=== PATIENT | male | born 1970 | race Caucasian/White ===

== ENCOUNTER 2020-11-20 20:55 | Inpatient (IN) | payer OTHER, MEDICARE ==
[~2020-11-20] VITALS: Ht 185.4 cm; Wt 155.3 kg
[2020-11-20 21:01] VITALS: BP 168/94
[2020-11-20 21:46] LABS: BASOPHILS % (AUTO) 0.6 % (0.0-5.0); EOSINOPHILS % (AUTO) 1.3 % (0.0-8.0); HEMATOCRIT 32.4 % (42-54); LYMPHOCYTES % (AUTO) 6.2 % (21.0-51.0); MEAN CORPUSCULAR HEMOGLOBIN 33.1 pg (27.0-33.0); MEAN CORPUSCULAR HGB CONC 34.9 g/dL (32.0-36.0); MONOCYTES % (AUTO) 7.4 % (3.0-13.0); NEUTROPHILS % (AUTO) 82.8 % (40.0-77.0); PLATELET COUNT (AUTO) 201 K/uL (130-400); RED BLOOD CELL COUNT(AUTO) 3.41 MIL/uL (4.50-6.20); RED CELL DISTRIBUTION WIDTH 13.6 % (11.0-15.5); WHITE BLOOD COUNT (AUTO) 14.8 K/uL (4.8-10.8)
[2020-11-20 22:02] LABS: ALBUMIN 3.4 g/dL (3.5-5.0); BILIRUBIN,TOTAL 0.4 mg/dL (0.2-1.0); CRP QUANTITATIVE 44.7 mg/L (0.00-9.0); POTASSIUM 5.7 mmol/L (3.5-5.1); TOTAL PROTEIN, SERUM 8.7 g/dL (6.0-8.3)
[2020-11-20 22:05] LABS: CREATININE 8.3 mg/dL (0.5-1.5)
[2020-11-20 22:11] LABS: B-TYPE NATRIURETIC PEPTIDE 285 pg/mL (0-100)
[2020-11-20] MEDS ORDERED: PIP/TAZ ZOSYN 3.375G 3.375 GM VIAL IVPB ONE (23:30)
[2020-11-20] MEDS ORDERED: INSULIN HUMULIN R 100 UNIT/ML 3ML IV ONE (23:30)
[2020-11-20] MEDS ORDERED: ZOSYN 3.375GM +NS 50ML IV ONE (23:45)
[2020-11-20] MEDS ORDERED: 0.9%NACL 50ML 50 ML IV ONE (23:45)
[2020-11-21] VITALS (24 sets, daily range): BP systolic 107–148; BP diastolic 50–86
[2020-11-21] MEDS: 0.9%NACL 1000ML 1,000 ML IV SCH ×5 (01:09→15:06)
[2020-11-21] MEDS ORDERED: ZOSYN 3.375GM+NS 50ML 50 ML IV ONE ×2 (01:11→04:07)
[2020-11-21] MEDS ORDERED: ACETAMINOPHEN 325 MG TAB ONE (06:07)
[2020-11-21] MEDS ORDERED: ACETAMINOPHEN 325 MG TAB PO ONE ×2 (06:30)
[2020-11-21] MEDS ORDERED: VANCOMYCIN PROTOCOL PER PHARMACY IV SCH (07:30)
[2020-11-21] MEDS ORDERED: MORPHINE 2 MG SYG IVP PRN (07:30)
[2020-11-21] MEDS: INSULIN R PO SS1 SQ SCH ×4 (07:30→21:00)
[2020-11-21] MEDS ORDERED: COMPOUND IV REFRIGERATED 1 EACH IVSOLN MISC PRN (07:30)
[2020-11-21] MEDS ORDERED: FOLI1TAB85 PO (08:52)
[2020-11-21] MEDS ORDERED: CALA177S9 TP (08:52)
[2020-11-21] MEDS ORDERED: LEVO50CA4 PO (08:52)
[2020-11-21] MEDS ORDERED: AMOX1TAB16 PO (08:52)
[2020-11-21] MEDS ORDERED: AMLO-258 PO (08:52)
[2020-11-21] MEDS ORDERED: METO50TA18 PO (08:52)
[2020-11-21] MEDS ORDERED: SUCR500T PO (08:52)
[2020-11-21] MEDS ORDERED: VALS160T29 PO (08:52)
[2020-11-21] MEDS ORDERED: CETI-89 PO (08:52)
[2020-11-21] MEDS ORDERED: VANCOMYCIN 1.75GM/250ML NS IV SCH ×2 (09:00)
[2020-11-21 09:22] LABS: BASOPHILS % (AUTO) 0.6 % (0.0-5.0); EOSINOPHILS % (AUTO) 0.2 % (0.0-8.0); HEMATOCRIT 27.2 % (42-54); LYMPHOCYTES % (AUTO) 6.3 % (21.0-51.0); MEAN CORPUSCULAR HEMOGLOBIN 33.2 pg (27.0-33.0); MEAN CORPUSCULAR HGB CONC 34.6 g/dL (32.0-36.0); MEAN CORPUSCULAR VOLUME 96.1 fL (79-99); MONOCYTES % (AUTO) 7.4 % (3.0-13.0); NEUTROPHILS % (AUTO) 84.4 % (40.0-77.0); PLATELET COUNT (AUTO) 181 K/uL (130-400); RED BLOOD CELL COUNT(AUTO) 2.83 MIL/uL (4.50-6.20); RED CELL DISTRIBUTION WIDTH 13.9 % (11.0-15.5); WHITE BLOOD COUNT (AUTO) 16.3 K/uL (4.8-10.8)
[2020-11-21 09:35] LABS: MAGNESIUM 1.9 mg/dL (1.80-2.40); POTASSIUM 5.8 mmol/L (3.5-5.1)
[2020-11-21 09:36] LABS: CREATININE 9.2 mg/dL (0.5-1.5)
[2020-11-21] MEDS ORDERED: INSLAN SQ (09:45)
[2020-11-21] MEDS: ZOSYN 3.375GM+NS 50ML 50 ML IV SCH ×2 (09:47→19:42)
[2020-11-21] MEDS ORDERED: INSULIN LISPRO 100 UNIT/ML 3ML SQ STA (10:26)
[2020-11-21] MEDS: INSULIN GLARGINE 100 UNITS/ML 10 ML VIAL SQ SCH (12:15)
[2020-11-21] MEDS: SUCROFERRIC OXYHYDROXIDE 500 MG PO SCH ×2 (12:16→17:00)
[2020-11-21] MEDS: INSULIN LISPRO 100 UNIT/ML 3ML SQ SCH (17:50)
[2020-11-21] MEDS: 0.9%NACL 1000ML 1,000 ML IV PRN (19:14)
[2020-11-21] MEDS: ACETAMINOPHEN 325 MG TAB PO PRN (19:18)
[2020-11-21] MEDS: HEPARIN 5,000 UNIT VIAL IJ PRN (19:32)
[2020-11-22] VITALS (10 sets, daily range): BP systolic 111–139; BP diastolic 45–60
[2020-11-22] MEDS ORDERED: LEVOTHYROXINE 50 MCG TABLET ONE (06:12)
[2020-11-22] MEDS: LEVOTHYROXINE 50 MCG TABLET PO SCH (06:23)
[2020-11-22] MEDS: INSULIN R PO SS1 SQ SCH ×4 (06:25→21:15)
[2020-11-22 07:16] LABS: HEPATITIS Bs ANTIGEN SCREEN P Negative (Negative)
[2020-11-22] MEDS: SUCROFERRIC OXYHYDROXIDE 500 MG PO SCH ×3 (08:00→17:00)
[2020-11-22] MEDS: INSULIN LISPRO 100 UNIT/ML 3ML SQ SCH ×3 (08:00→17:15)
[2020-11-22 08:39] LABS: INR 1.1 (0.85-1.15); PROTHROMBIN TIME 11.9 SEC (9.6-11.6)
[2020-11-22 08:40] LABS: PARTIAL THROMBOPLASTIN TIME 26.4 SEC (26.3-35.5)
[2020-11-22] MEDS: METOPROLOL TARTRATE 50 MG TAB PO SCH (09:00)
[2020-11-22] MEDS: Vitamin B Complex/Vit C/Folic Acid PO SCH (09:00)
[2020-11-22] MEDS ORDERED: LOSARTAN 100 MG TABLET PO SCH (09:00)
[2020-11-22] MEDS: AMLODIPINE 5 MG TAB PO SCH (09:00)
[2020-11-22] MEDS: ZOSYN 3.375GM+NS 50ML 50 ML IV SCH ×2 (09:28→20:05)
[2020-11-22] MEDS: INSULIN GLARGINE 100 UNITS/ML 10 ML VIAL SQ SCH (12:00)
[2020-11-22] MEDS ORDERED: LIDOCAINE HCL 1% MDV 50ML VIAL ONE ×2 (13:03→13:53)
[2020-11-22] MEDS ORDERED: IODIXANOL 320 MG/ML 100 ML VIAL ONE (13:53)
[2020-11-22] MEDS ORDERED: FENTANYL CITRATE PF 50 MCG/1 ML 2ML VIAL ONE (14:09)
[2020-11-22] MEDS ORDERED: MIDAZOLAM HCL 1 MG/ML 2ML VIAL ONE (14:09)
[2020-11-22] MEDS ORDERED: OCTYL 2-CYANOACRYLATE 1 EACH TP ONE (14:30)
[2020-11-23] VITALS (7 sets, daily range): BP systolic 96–149; BP diastolic 45–72
[2020-11-23] MEDS: LEVOTHYROXINE 50 MCG TABLET PO SCH (06:19)
[2020-11-23] MEDS: INSULIN R PO SS1 SQ SCH ×4 (06:36→19:58)
[2020-11-23] MEDS: SUCROFERRIC OXYHYDROXIDE 500 MG PO SCH ×3 (08:00→17:00)
[2020-11-23] MEDS: METOPROLOL TARTRATE 50 MG TAB PO SCH (09:00)
[2020-11-23] MEDS: AMLODIPINE 5 MG TAB PO SCH (09:00)
[2020-11-23] MEDS: INSULIN LISPRO 100 UNIT/ML 3ML SQ SCH ×3 (09:06→16:07)
[2020-11-23] MEDS: Vitamin B Complex/Vit C/Folic Acid PO SCH (09:15)
[2020-11-23] MEDS: ZOSYN 3.375GM+NS 50ML 50 ML IV SCH (09:16)
[2020-11-23] MEDS: INSULIN GLARGINE 100 UNITS/ML 10 ML VIAL SQ SCH (12:07)
[2020-11-23] MEDS: CEFTRIAXONE 2GM VIAL IVP SCH (17:06)
[2020-11-23 21:41] LABS: APPEARANCE,URINE Clear (CLEAR); BILIRUBIN,URINE Negative (NEGATIVE); COLOR,URINE Yellow (YELLOW); GLUCOSE, URINE (UA) 250 mg/dL (NEGATIVE); KETONES,URINE Negative (NEGATIVE); LEUKOCYTE ESTERASE ,URINE Negative (NEGATIVE); NITRATE,URINE Negative (NEGATIVE); OCCULT BLOOD,URINE Small (NEGATIVE); PH,URINE 7.5 (5.0-8.0); PROTEIN,URINE 300 mg/dL (NEGATIVE); UROBILINOGEN,URINE 0.2 mg/dL (0.2-1.0)
[2020-11-23 21:52] LABS: BACTERIA,URINE Rare /HPF (None Seen); RBC,URINE 0-1 /HPF (0-1); SQUAMOUS EPITHELIAL CELL,UR Few /HPF (0-2)
[2020-11-24 03:58] VITALS: BP 141/71
[2020-11-24] MEDS: INSULIN R PO SS1 SQ SCH ×4 (05:16→20:09)
[2020-11-24 05:33] LABS: BASOPHILS % (AUTO) 0.7 % (0.0-5.0); EOSINOPHILS % (AUTO) 5.4 % (0.0-8.0); HEMATOCRIT 26.9 % (42-54); LYMPHOCYTES % (AUTO) 23.4 % (21.0-51.0); MEAN CORPUSCULAR HEMOGLOBIN 32.3 pg (27.0-33.0); MEAN CORPUSCULAR HGB CONC 33.8 g/dL (32.0-36.0); MEAN CORPUSCULAR VOLUME 95.4 fL (79-99); MONOCYTES % (AUTO) 9.4 % (3.0-13.0); NEUTROPHILS % (AUTO) 59.6 % (40.0-77.0); PLATELET COUNT (AUTO) 178 K/uL (130-400); RED BLOOD CELL COUNT(AUTO) 2.82 MIL/uL (4.50-6.20); RED CELL DISTRIBUTION WIDTH 13.3 % (11.0-15.5); WHITE BLOOD COUNT (AUTO) 10.1 K/uL (4.8-10.8)
[2020-11-24] MEDS: LEVOTHYROXINE 50 MCG TABLET PO SCH (06:18)
[2020-11-24] MEDS: SUCROFERRIC OXYHYDROXIDE 500 MG PO SCH ×3 (08:00→17:00)
[2020-11-24 08:08] VITALS: BP 144/69
[2020-11-24 08:35] LABS: ALBUMIN 2.8 g/dL (3.5-5.0); BILIRUBIN,TOTAL 0.2 mg/dL (0.2-1.0); POTASSIUM 4.8 mmol/L (3.5-5.1); TOTAL PROTEIN, SERUM 7.6 g/dL (6.0-8.3)
[2020-11-24] MEDS: INSULIN LISPRO 100 UNIT/ML 3ML SQ SCH ×3 (08:53→16:38)
[2020-11-24] MEDS: METOPROLOL TARTRATE 50 MG TAB PO SCH (09:07)
[2020-11-24] MEDS: Vitamin B Complex/Vit C/Folic Acid PO SCH (09:07)
[2020-11-24] MEDS: AMLODIPINE 5 MG TAB PO SCH (09:07)
[2020-11-24 11:54] VITALS: BP 144/68
[2020-11-24] MEDS: INSULIN GLARGINE 100 UNITS/ML 10 ML VIAL SQ SCH (12:44)
[2020-11-24] MEDS: CEFTRIAXONE 2GM VIAL IVP SCH (12:46)
[2020-11-24 15:51] VITALS: BP 161/65
[2020-11-24 20:00] VITALS: BP 145/72
[2020-11-24 23:59] VITALS: BP 170/80
[2020-11-25] VITALS (7 sets, daily range): BP systolic 119–175; BP diastolic 59–82
[2020-11-25] MEDS: ACETAMINOPHEN 325 MG TAB PO PRN (02:52)
[2020-11-25] MEDS ORDERED: CLONIDINE HCL 0.1 MG TABLET ONE (04:24)
[2020-11-25] MEDS ORDERED: CLONIDINE HCL 0.1 MG TABLET PO ONE (04:30)
[2020-11-25] MEDS: LEVOTHYROXINE 50 MCG TABLET PO SCH (06:11)
[2020-11-25] MEDS: INSULIN R PO SS1 SQ SCH ×4 (06:12→21:01)
[2020-11-25] MEDS: Vitamin B Complex/Vit C/Folic Acid PO SCH (08:59)
[2020-11-25] MEDS: AMLODIPINE 5 MG TAB PO SCH (08:59)
[2020-11-25] MEDS: METOPROLOL TARTRATE 50 MG TAB PO SCH (08:59)
[2020-11-25] MEDS: INSULIN LISPRO 100 UNIT/ML 3ML SQ SCH ×3 (09:00→16:45)
[2020-11-25] MEDS: SUCROFERRIC OXYHYDROXIDE 500 MG PO SCH ×3 (09:10→17:53)
[2020-11-25] MEDS: CEFTRIAXONE 2GM VIAL IVP SCH (11:54)
[2020-11-25] MEDS: INSULIN GLARGINE 100 UNITS/ML 10 ML VIAL SQ SCH (12:03)
[2020-11-26] VITALS (16 sets, daily range): BP systolic 140–198; BP diastolic 67–87
[2020-11-26] MEDS: ACETAMINOPHEN 325 MG TAB PO PRN (01:43)
[2020-11-26] MEDS: INSULIN R PO SS1 SQ SCH ×4 (06:24→20:15)
[2020-11-26 06:30] LABS: INR 1.02 (0.85-1.15); PROTHROMBIN TIME 11.1 SEC (9.6-11.6)
[2020-11-26] MEDS: LEVOTHYROXINE 50 MCG TABLET PO SCH (06:30)
[2020-11-26 06:31] LABS: PARTIAL THROMBOPLASTIN TIME 25.9 SEC (26.3-35.5)
[2020-11-26] MEDS: INSULIN LISPRO 100 UNIT/ML 3ML SQ SCH ×3 (08:00→16:38)
[2020-11-26] MEDS: SUCROFERRIC OXYHYDROXIDE 500 MG PO SCH ×3 (08:00→16:39)
[2020-11-26] MEDS: AMLODIPINE 5 MG TAB PO SCH ×2 (09:00→11:47)
[2020-11-26] MEDS: METOPROLOL TARTRATE 50 MG TAB PO SCH ×2 (09:00→11:47)
[2020-11-26] MEDS: Vitamin B Complex/Vit C/Folic Acid PO SCH (09:00)
[2020-11-26] MEDS ORDERED: LIDOCAINE HCL 1% MDV 50ML VIAL ONE (10:33)
[2020-11-26] MEDS ORDERED: HEPARIN 1,000 UNIT VIAL ONE (10:33)
[2020-11-26] MEDS ORDERED: FENTANYL CITRATE PF 50 MCG/1 ML 2ML VIAL ONE (10:42)
[2020-11-26] MEDS: INSULIN GLARGINE 100 UNITS/ML 10 ML VIAL SQ SCH (11:53)
[2020-11-26] MEDS: CEFTRIAXONE 2GM VIAL IVP SCH (11:59)
[2020-11-26] MEDS: 0.9%NACL 1000ML 1,000 ML IV PRN (23:25)
[2020-11-27] VITALS (31 sets, daily range): BP systolic 118–192; BP diastolic 58–85
[2020-11-27] MEDS: HEPARIN 5,000 UNIT VIAL IJ PRN (00:50)
[2020-11-27] MEDS: ACETAMINOPHEN 325 MG TAB PO PRN ×2 (02:26→09:13)
[2020-11-27 05:28] LABS: HEMATOCRIT 29.5 % (42-54); MEAN CORPUSCULAR HEMOGLOBIN 32.4 pg (27.0-33.0); MEAN CORPUSCULAR HGB CONC 33.6 g/dL (32.0-36.0); MEAN CORPUSCULAR VOLUME 96.4 fL (79-99); RED BLOOD CELL COUNT(AUTO) 3.06 MIL/uL (4.50-6.20); RED CELL DISTRIBUTION WIDTH 13.2 % (11.0-15.5); WHITE BLOOD COUNT (AUTO) 10.5 K/uL (4.8-10.8)
[2020-11-27 05:46] LABS: MAGNESIUM 2.2 mg/dL (1.80-2.40); POTASSIUM 4.6 mmol/L (3.5-5.1)
[2020-11-27 05:55] LABS: CREATININE 8.7 mg/dL (0.5-1.5)
[2020-11-27] MEDS: INSULIN R PO SS1 SQ SCH ×4 (06:12→20:38)
[2020-11-27] MEDS: LEVOTHYROXINE 50 MCG TABLET PO SCH (06:34)
[2020-11-27] MEDS: SUCROFERRIC OXYHYDROXIDE 500 MG PO SCH ×3 (08:00→16:57)
[2020-11-27] MEDS: INSULIN LISPRO 100 UNIT/ML 3ML SQ SCH ×3 (08:00→16:56)
[2020-11-27] MEDS: Vitamin B Complex/Vit C/Folic Acid PO SCH (09:13)
[2020-11-27] MEDS: METOPROLOL TARTRATE 50 MG TAB PO SCH (09:13)
[2020-11-27] MEDS: LOSARTAN 100 MG TABLET PO SCH (09:13)
[2020-11-27] MEDS: AMLODIPINE 5 MG TAB PO SCH (09:13)
[2020-11-27] MEDS: CEFTRIAXONE 2GM VIAL IVP SCH ×2 (11:57→12:30)
[2020-11-27] MEDS: INSULIN GLARGINE 100 UNITS/ML 10 ML VIAL SQ SCH (12:00)
[2020-11-27] MEDS ORDERED: ROPIVACAINE 0.5% 5MG/ML 30ML IJ ONE (12:43)
[2020-11-27] MEDS ORDERED: SUCCINYLCHOLINE 200MG/10ML SYR ONE (12:44)
[2020-11-27] MEDS ORDERED: PROPOFOL 10 MG/ML 20ML VIAL IV ONE (12:44)
[2020-11-27] MEDS ORDERED: MIDAZOLAM HCL 1 MG/ML 2ML VIAL ONE (12:44)
[2020-11-27] MEDS ORDERED: LIDOCAINE PF 100MG/5ML (2%) SYRINGE 5ML ONE (12:44)
[2020-11-27] MEDS ORDERED: VANCOMYCIN 1G VIAL ONE (13:43)
[2020-11-27] MEDS ORDERED: OXYCODONE/ACETAMIN 5/325MG TAB PO PRN (14:30)
[2020-11-27] MEDS ORDERED: MORPHINE 2 MG SYG IVP PRN (14:30)
[2020-11-28] VITALS (21 sets, daily range): BP systolic 105–163; BP diastolic 52–74
[2020-11-28] MEDS ORDERED: CLONIDINE HCL 0.2 MG TABLET PO ONE (05:17)
[2020-11-28] MEDS ORDERED: CLONIDINE HCL 0.2 MG TABLET PO PRN (05:30)
[2020-11-28] MEDS: LEVOTHYROXINE 50 MCG TABLET PO SCH (06:23)
[2020-11-28] MEDS: INSULIN R PO SS1 SQ SCH ×4 (06:26→22:05)
[2020-11-28] MEDS: SUCROFERRIC OXYHYDROXIDE 500 MG PO SCH ×3 (08:00→17:00)
[2020-11-28] MEDS: METOPROLOL TARTRATE 50 MG TAB PO SCH (09:24)
[2020-11-28] MEDS: LOSARTAN 100 MG TABLET PO SCH (09:24)
[2020-11-28] MEDS: Vitamin B Complex/Vit C/Folic Acid PO SCH (09:24)
[2020-11-28] MEDS: AMLODIPINE 5 MG TAB PO SCH (09:24)
[2020-11-28] MEDS: INSULIN LISPRO 100 UNIT/ML 3ML SQ SCH ×3 (09:35→20:12)
[2020-11-28] MEDS: INSULIN GLARGINE 100 UNITS/ML 10 ML VIAL SQ SCH (12:10)
[2020-11-28] MEDS: CEFTRIAXONE 2GM VIAL IVP SCH (12:18)
[2020-11-28] MEDS: 0.9%NACL 1000ML 1,000 ML IV PRN (16:40)
[2020-11-29] VITALS (18 sets, daily range): BP systolic 110–159; BP diastolic 45–75
[2020-11-29] MEDS: LEVOTHYROXINE 50 MCG TABLET PO SCH (06:55)
[2020-11-29] MEDS: INSULIN R PO SS1 SQ SCH ×4 (07:00→21:00)
[2020-11-29] MEDS: SUCROFERRIC OXYHYDROXIDE 500 MG PO SCH ×3 (08:00→17:00)
[2020-11-29] MEDS: Vitamin B Complex/Vit C/Folic Acid PO SCH (09:00)
[2020-11-29] MEDS: AMLODIPINE 5 MG TAB PO SCH (09:00)
[2020-11-29] MEDS: LOSARTAN 100 MG TABLET PO SCH (09:00)
[2020-11-29] MEDS: METOPROLOL TARTRATE 50 MG TAB PO SCH (09:00)
[2020-11-29] MEDS: INSULIN LISPRO 100 UNIT/ML 3ML SQ SCH ×3 (09:09→17:00)
[2020-11-29] MEDS: INSULIN GLARGINE 100 UNITS/ML 10 ML VIAL SQ SCH (12:52)
[2020-11-29] MEDS: CEFTRIAXONE 2GM VIAL IVP SCH (12:58)
[2020-11-29 16:18] LABS: BASOPHILS % (AUTO) 0.9 % (0.0-5.0); EOSINOPHILS % (AUTO) 3.6 % (0.0-8.0); HEMATOCRIT 30.5 % (42-54); LYMPHOCYTES % (AUTO) 24.5 % (21.0-51.0); MEAN CORPUSCULAR HEMOGLOBIN 33.2 pg (27.0-33.0); MEAN CORPUSCULAR HGB CONC 34.1 g/dL (32.0-36.0); MEAN CORPUSCULAR VOLUME 97.4 fL (79-99); MONOCYTES % (AUTO) 6.9 % (3.0-13.0); NEUTROPHILS % (AUTO) 60.4 % (40.0-77.0); PLATELET COUNT (AUTO) 253 K/uL (130-400); RED BLOOD CELL COUNT(AUTO) 3.13 MIL/uL (4.50-6.20); RED CELL DISTRIBUTION WIDTH 13.6 % (11.0-15.5); WHITE BLOOD COUNT (AUTO) 14.9 K/uL (4.8-10.8)
[2020-11-29 16:30] LABS: INR 1.02 (0.85-1.15); PROTHROMBIN TIME 11.1 SEC (9.6-11.6)
[2020-11-29 16:32] LABS: POTASSIUM 4.7 mmol/L (3.5-5.1)
[2020-11-29 16:36] LABS: CREATININE 9.4 mg/dL (0.5-1.5)
[2020-11-29] MEDS ORDERED: PROPOFOL 10 MG/ML 20ML VIAL IV ONE (16:47)
[2020-11-29] MEDS ORDERED: MIDAZOLAM HCL 1 MG/ML 2ML VIAL ONE (16:48)
[2020-11-29] MEDS ORDERED: FENTANYL CITRATE PF 50 MCG/1 ML 2ML VIAL ONE ×2 (16:48→18:37)
[2020-11-29] MEDS ORDERED: LIDOCAINE HCL 1% 20 ML VIAL ONE (18:13)
[2020-11-29] MEDS ORDERED: BUPIVACAINE/PF 0.5% 30ML VIAL ONE (18:13)
[2020-11-29] MEDS: 0.9%NACL 1000ML 1,000 ML IV PRN (19:00)
[2020-11-29] MEDS ORDERED: HYDROMORPHONE 0.5 MG SYG (0.5MG/0.5ML) IVP PRN (20:30)
[2020-11-29] MEDS ORDERED: MORPHINE 2 MG SYG IVP PRN (20:30)
[2020-11-30] VITALS (21 sets, daily range): BP systolic 101–167; BP diastolic 56–79
[2020-11-30] MEDS: INSULIN R PO SS1 SQ SCH ×4 (06:46→20:16)
[2020-11-30] MEDS: LEVOTHYROXINE 50 MCG TABLET PO SCH (06:53)
[2020-11-30] MEDS: SUCROFERRIC OXYHYDROXIDE 500 MG PO SCH ×3 (08:00→17:00)
[2020-11-30] MEDS: INSULIN LISPRO 100 UNIT/ML 3ML SQ SCH ×3 (08:44→17:22)
[2020-11-30] MEDS: Vitamin B Complex/Vit C/Folic Acid PO SCH (08:44)
[2020-11-30] MEDS: METOPROLOL TARTRATE 50 MG TAB PO SCH (08:45)
[2020-11-30] MEDS: LOSARTAN 100 MG TABLET PO SCH (08:45)
[2020-11-30] MEDS: AMLODIPINE 5 MG TAB PO SCH (08:45)
[2020-11-30 09:10] LABS: HEMATOCRIT 29.8 % (42-54); MEAN CORPUSCULAR HGB CONC 33.2 g/dL (32.0-36.0); MEAN CORPUSCULAR VOLUME 96.4 fL (79-99); PLATELET COUNT (AUTO) 253 K/uL (130-400); RED BLOOD CELL COUNT(AUTO) 3.09 MIL/uL (4.50-6.20); RED CELL DISTRIBUTION WIDTH 13.5 % (11.0-15.5); WHITE BLOOD COUNT (AUTO) 12.9 K/uL (4.8-10.8)
[2020-11-30 09:22] LABS: POTASSIUM 5.3 mmol/L (3.5-5.1)
[2020-11-30 09:55] LABS: BASOPHILS % (MANUAL) 1 % (0-2); EOSINOPHILS % (MANUAL) 3 % (1-6); LYMPHOCYTES % (MANUAL) 16 % (22-44); MONOCYTES % (MANUAL) 11 % (2-9); PLATELET MORPHOLOGY COMMENT ADEQUATE; REACTIVE LYMPHOCYTES 1 % (0-0); SEGMENTED NEUTROPHILS % 68 % (40-70)
[2020-11-30] MEDS: CEFTRIAXONE 2GM VIAL IVP SCH (11:59)
[2020-11-30] MEDS: INSULIN GLARGINE 100 UNITS/ML 10 ML VIAL SQ SCH (12:49)
[2020-11-30] MEDS: 0.9%NACL 1000ML 1,000 ML IV PRN (17:36)
[2020-11-30] MEDS: HEPARIN 5,000 UNIT VIAL IJ PRN (18:35)
[2020-12-01] VITALS (8 sets, daily range): BP systolic 80–151; BP diastolic 44–79
[2020-12-01] MEDS: INSULIN R PO SS1 SQ SCH ×4 (06:03→21:00)
[2020-12-01 06:23] LABS: HEMATOCRIT 29.6 % (42-54); MEAN CORPUSCULAR HEMOGLOBIN 32.3 pg (27.0-33.0); MEAN CORPUSCULAR HGB CONC 33.8 g/dL (32.0-36.0); MEAN CORPUSCULAR VOLUME 95.5 fL (79-99); RED BLOOD CELL COUNT(AUTO) 3.1 MIL/uL (4.50-6.20); RED CELL DISTRIBUTION WIDTH 13.3 % (11.0-15.5); WHITE BLOOD COUNT (AUTO) 11.5 K/uL (4.8-10.8)
[2020-12-01 06:49] LABS: ALBUMIN 3.1 g/dL (3.5-5.0); BILIRUBIN,TOTAL 0.2 mg/dL (0.2-1.0); MAGNESIUM 2.1 mg/dL (1.80-2.40); POTASSIUM 4.8 mmol/L (3.5-5.1); TOTAL PROTEIN, SERUM 7.9 g/dL (6.0-8.3)
[2020-12-01 06:51] LABS: CREATININE 8.4 mg/dL (0.5-1.5)
[2020-12-01] MEDS: LEVOTHYROXINE 50 MCG TABLET PO SCH (06:54)
[2020-12-01] MEDS: SUCROFERRIC OXYHYDROXIDE 500 MG PO SCH ×3 (08:00→17:00)
[2020-12-01] MEDS: INSULIN LISPRO 100 UNIT/ML 3ML SQ SCH ×3 (08:00→17:08)
[2020-12-01] MEDS: Vitamin B Complex/Vit C/Folic Acid PO SCH (09:27)
[2020-12-01] MEDS: LOSARTAN 100 MG TABLET PO SCH (09:27)
[2020-12-01] MEDS: METOPROLOL TARTRATE 50 MG TAB PO SCH (09:27)
[2020-12-01] MEDS: AMLODIPINE 5 MG TAB PO SCH (09:27)
[2020-12-01] MEDS: INSULIN GLARGINE 100 UNITS/ML 10 ML VIAL SQ SCH (12:11)
[2020-12-01] MEDS: CEFTRIAXONE 2GM VIAL IVP SCH (12:35)
[2020-12-02 04:02] VITALS: BP 122/73
[2020-12-02] MEDS: LEVOTHYROXINE 50 MCG TABLET PO SCH (06:19)
[2020-12-02] MEDS: INSULIN R PO SS1 SQ SCH ×4 (06:54→21:00)
[2020-12-02 08:00] VITALS: BP 159/69
[2020-12-02] MEDS: SUCROFERRIC OXYHYDROXIDE 500 MG PO SCH ×3 (08:00→16:44)
[2020-12-02] MEDS: INSULIN LISPRO 100 UNIT/ML 3ML SQ SCH ×3 (08:00→18:45)
[2020-12-02] MEDS: AMLODIPINE 5 MG TAB PO SCH (10:35)
[2020-12-02] MEDS: LOSARTAN 100 MG TABLET PO SCH (10:36)
[2020-12-02] MEDS: METOPROLOL TARTRATE 50 MG TAB PO SCH (10:36)
[2020-12-02] MEDS: Vitamin B Complex/Vit C/Folic Acid PO SCH (10:37)
[2020-12-02 11:31] VITALS: BP 146/70
[2020-12-02] MEDS: CEFTRIAXONE 2GM VIAL IVP SCH (14:21)
[2020-12-02] MEDS: INSULIN GLARGINE 100 UNITS/ML 10 ML VIAL SQ SCH (14:24)
[2020-12-02 16:00] VITALS: BP 138/51
[2020-12-02 20:08] VITALS: BP 97/48
[2020-12-03] VITALS (20 sets, daily range): BP systolic 101–157; BP diastolic 56–74
[2020-12-03] MEDS: LEVOTHYROXINE 50 MCG TABLET PO SCH (05:46)
[2020-12-03] MEDS: INSULIN R PO SS1 SQ SCH ×4 (05:46→21:00)
[2020-12-03 07:02] LABS: HEMATOCRIT 28.7 % (42-54); MEAN CORPUSCULAR HEMOGLOBIN 32.6 pg (27.0-33.0); MEAN CORPUSCULAR HGB CONC 34.5 g/dL (32.0-36.0); MEAN CORPUSCULAR VOLUME 94.4 fL (79-99); RED BLOOD CELL COUNT(AUTO) 3.04 MIL/uL (4.50-6.20); RED CELL DISTRIBUTION WIDTH 13.5 % (11.0-15.5); WHITE BLOOD COUNT (AUTO) 13.1 K/uL (4.8-10.8)
[2020-12-03 07:19] LABS: POTASSIUM 4.3 mmol/L (3.5-5.1)
[2020-12-03 07:51] LABS: CREATININE 9.2 mg/dL (0.5-1.5)
[2020-12-03] MEDS: SUCROFERRIC OXYHYDROXIDE 500 MG PO SCH ×3 (08:00→17:00)
[2020-12-03] MEDS: LOSARTAN 100 MG TABLET PO SCH (10:11)
[2020-12-03] MEDS: AMLODIPINE 5 MG TAB PO SCH (10:11)
[2020-12-03] MEDS: Vitamin B Complex/Vit C/Folic Acid PO SCH (10:11)
[2020-12-03] MEDS: METOPROLOL TARTRATE 50 MG TAB PO SCH (10:11)
[2020-12-03] MEDS: INSULIN LISPRO 100 UNIT/ML 3ML SQ SCH ×3 (10:12→17:29)
[2020-12-03] MEDS: CEFTRIAXONE 2GM VIAL IVP SCH (14:40)
[2020-12-03] MEDS: INSULIN GLARGINE 100 UNITS/ML 10 ML VIAL SQ SCH (14:46)
[2020-12-04 00:12] VITALS: BP 106/54
[2020-12-04 04:12] VITALS: BP 118/65
[2020-12-04] MEDS: LEVOTHYROXINE 50 MCG TABLET PO SCH (05:16)
[2020-12-04] MEDS: INSULIN R PO SS1 SQ SCH ×4 (07:30→21:00)
[2020-12-04 08:00] VITALS: BP 94/42
[2020-12-04] MEDS: SUCROFERRIC OXYHYDROXIDE 500 MG PO SCH ×3 (08:00→15:39)
[2020-12-04] MEDS: INSULIN LISPRO 100 UNIT/ML 3ML SQ SCH ×3 (08:00→15:40)
[2020-12-04] MEDS: LOSARTAN 100 MG TABLET PO SCH (09:00)
[2020-12-04] MEDS: AMLODIPINE 5 MG TAB PO SCH (09:00)
[2020-12-04] MEDS: METOPROLOL TARTRATE 50 MG TAB PO SCH (09:15)
[2020-12-04] MEDS: Vitamin B Complex/Vit C/Folic Acid PO SCH (09:15)
[2020-12-04] MEDS: ACETAMINOPHEN 325 MG TAB PO PRN (09:20)
[2020-12-04 11:33] VITALS: BP 94/58
[2020-12-04] MEDS: CEFTRIAXONE 2GM VIAL IVP SCH (12:21)
[2020-12-04] MEDS: INSULIN GLARGINE 100 UNITS/ML 10 ML VIAL SQ SCH (12:21)
[2020-12-04 20:49] VITALS: BP 135/65
[2020-12-04] MEDS: METRONIDAZOLE 500MG/100ML BAG 100 ML IVPB SCH (22:32)
[2020-12-04 23:31] VITALS: BP 151/68
[2020-12-05] VITALS (19 sets, daily range): BP systolic 100–138; BP diastolic 50–71
[2020-12-05] MEDS: INSULIN R PO SS1 SQ SCH ×4 (05:59→21:00)
[2020-12-05] MEDS: METRONIDAZOLE 500MG/100ML BAG 100 ML IVPB SCH ×3 (06:12→21:34)
[2020-12-05] MEDS: LEVOTHYROXINE 50 MCG TABLET PO SCH (06:12)
[2020-12-05] MEDS: SUCROFERRIC OXYHYDROXIDE 500 MG PO SCH ×3 (07:50→16:01)
[2020-12-05] MEDS: INSULIN LISPRO 100 UNIT/ML 3ML SQ SCH ×3 (08:00→16:01)
[2020-12-05] MEDS: METOPROLOL TARTRATE 50 MG TAB PO SCH (08:17)
[2020-12-05] MEDS: Vitamin B Complex/Vit C/Folic Acid PO SCH (08:17)
[2020-12-05] MEDS: AMLODIPINE 5 MG TAB PO SCH (08:17)
[2020-12-05] MEDS: LOSARTAN 100 MG TABLET PO SCH (08:17)
[2020-12-05] MEDS: CEFTRIAXONE 2GM VIAL IVP SCH (12:30)
[2020-12-05] MEDS: INSULIN GLARGINE 100 UNITS/ML 10 ML VIAL SQ SCH (12:39)
[2020-12-05] MEDS: ACETAMINOPHEN 325 MG TAB PO PRN (15:10)
[2020-12-06 03:37] VITALS: BP 114/64
[2020-12-06] MEDS: METRONIDAZOLE 500MG/100ML BAG 100 ML IVPB SCH ×3 (05:28→21:45)
[2020-12-06] MEDS: INSULIN R PO SS1 SQ SCH ×4 (06:26→21:00)
[2020-12-06] MEDS: LEVOTHYROXINE 50 MCG TABLET PO SCH (06:35)
[2020-12-06 08:00] VITALS: BP 123/56
[2020-12-06] MEDS: SUCROFERRIC OXYHYDROXIDE 500 MG PO SCH ×3 (08:00→17:00)
[2020-12-06] MEDS: Vitamin B Complex/Vit C/Folic Acid PO SCH (10:57)
[2020-12-06] MEDS: AMLODIPINE 5 MG TAB PO SCH (10:57)
[2020-12-06] MEDS: LOSARTAN 100 MG TABLET PO SCH (10:57)
[2020-12-06] MEDS: METOPROLOL TARTRATE 50 MG TAB PO SCH (10:57)
[2020-12-06 12:00] VITALS: BP 120/72
[2020-12-06] MEDS: CEFTRIAXONE 2GM VIAL IVP SCH (12:14)
[2020-12-06] MEDS: INSULIN LISPRO 100 UNIT/ML 3ML SQ SCH ×2 (12:19→17:12)
[2020-12-06] MEDS: INSULIN GLARGINE 100 UNITS/ML 10 ML VIAL SQ SCH (12:19)
[2020-12-06] MEDS: ACETAMINOPHEN 325 MG TAB PO PRN (15:36)
[2020-12-06 16:38] VITALS: BP 99/53
[2020-12-06 19:38] VITALS: BP 128/62
[2020-12-06 23:54] VITALS: BP 143/68
[2020-12-07] VITALS (18 sets, daily range): BP systolic 96–134; BP diastolic 51–74
[2020-12-07] MEDS: METRONIDAZOLE 500MG/100ML BAG 100 ML IVPB SCH ×3 (05:34→21:32)
[2020-12-07] MEDS: ACETAMINOPHEN 325 MG TAB PO PRN (05:44)
[2020-12-07 05:46] LABS: HEMATOCRIT 31.5 % (42-54); MEAN CORPUSCULAR HEMOGLOBIN 32.2 pg (27.0-33.0); MEAN CORPUSCULAR HGB CONC 33.7 g/dL (32.0-36.0); MEAN CORPUSCULAR VOLUME 95.7 fL (79-99); RED BLOOD CELL COUNT(AUTO) 3.29 MIL/uL (4.50-6.20); RED CELL DISTRIBUTION WIDTH 13.3 % (11.0-15.5); WHITE BLOOD COUNT (AUTO) 13.1 K/uL (4.8-10.8)
[2020-12-07 06:07] LABS: MAGNESIUM 2.4 mg/dL (1.80-2.40)
[2020-12-07 06:11] LABS: CREATININE 10.7 mg/dL (0.5-1.5)
[2020-12-07] MEDS: INSULIN R PO SS1 SQ SCH ×4 (06:18→20:32)
[2020-12-07] MEDS: LEVOTHYROXINE 50 MCG TABLET PO SCH (06:50)
[2020-12-07] MEDS: SUCROFERRIC OXYHYDROXIDE 500 MG PO SCH ×3 (08:00→12:51)
[2020-12-07] MEDS: Vitamin B Complex/Vit C/Folic Acid PO SCH (08:53)
[2020-12-07] MEDS: LOSARTAN 100 MG TABLET PO SCH (09:00)
[2020-12-07] MEDS: AMLODIPINE 5 MG TAB PO SCH (09:00)
[2020-12-07] MEDS: METOPROLOL TARTRATE 50 MG TAB PO SCH (09:00)
[2020-12-07] MEDS: INSULIN LISPRO 100 UNIT/ML 3ML SQ SCH ×3 (09:05→17:34)
[2020-12-07] MEDS: 0.9%NACL 1000ML 1,000 ML IV PRN (12:15)
[2020-12-07] MEDS: INSULIN GLARGINE 100 UNITS/ML 10 ML VIAL SQ SCH (12:47)
[2020-12-08] VITALS (7 sets, daily range): BP systolic 101–119; BP diastolic 54–65
[2020-12-08] MEDS: LEVOTHYROXINE 50 MCG TABLET PO SCH (05:39)
[2020-12-08] MEDS: METRONIDAZOLE 500MG/100ML BAG 100 ML IVPB SCH ×3 (05:39→21:31)
[2020-12-08] MEDS: INSULIN R PO SS1 SQ SCH ×4 (05:54→21:37)
[2020-12-08] MEDS: SUCROFERRIC OXYHYDROXIDE 500 MG PO SCH ×3 (08:00→17:00)
[2020-12-08] MEDS: Vitamin B Complex/Vit C/Folic Acid PO SCH (08:26)
[2020-12-08] MEDS: METOPROLOL TARTRATE 50 MG TAB PO SCH (08:26)
[2020-12-08] MEDS: AMLODIPINE 5 MG TAB PO SCH (08:26)
[2020-12-08] MEDS: LOSARTAN 100 MG TABLET PO SCH (08:26)
[2020-12-08] MEDS: INSULIN LISPRO 100 UNIT/ML 3ML SQ SCH ×3 (08:32→17:17)
[2020-12-08] MEDS: INSULIN GLARGINE 100 UNITS/ML 10 ML VIAL SQ SCH (12:00)
[2020-12-09 03:49] VITALS: BP 128/68
[2020-12-09] MEDS: METRONIDAZOLE 500MG/100ML BAG 100 ML IVPB SCH ×3 (05:21→21:32)
[2020-12-09] MEDS: LEVOTHYROXINE 50 MCG TABLET PO SCH (05:22)
[2020-12-09] MEDS: INSULIN R PO SS1 SQ SCH ×4 (06:07→21:00)
[2020-12-09 07:42] VITALS: BP 126/81
[2020-12-09] MEDS: SUCROFERRIC OXYHYDROXIDE 500 MG PO SCH ×3 (08:00→17:00)
[2020-12-09] MEDS: LOSARTAN 100 MG TABLET PO SCH (08:30)
[2020-12-09] MEDS: Vitamin B Complex/Vit C/Folic Acid PO SCH (08:30)
[2020-12-09] MEDS: AMLODIPINE 5 MG TAB PO SCH (08:30)
[2020-12-09] MEDS: METOPROLOL TARTRATE 50 MG TAB PO SCH (08:30)
[2020-12-09] MEDS: INSULIN LISPRO 100 UNIT/ML 3ML SQ SCH ×3 (08:32→18:10)
[2020-12-09 11:14] VITALS: BP 125/52
[2020-12-09] MEDS: INSULIN GLARGINE 100 UNITS/ML 10 ML VIAL SQ SCH (13:03)
[2020-12-09 17:16] VITALS: BP 114/90
[2020-12-09 20:20] VITALS: BP 104/58
[2020-12-09 23:34] VITALS: BP 142/61
[2020-12-10] VITALS (19 sets, daily range): BP systolic 92–150; BP diastolic 54–75
[2020-12-10 05:08] LABS: HEMATOCRIT 28.9 % (42-54); MEAN CORPUSCULAR HEMOGLOBIN 32.7 pg (27.0-33.0); MEAN CORPUSCULAR HGB CONC 34.6 g/dL (32.0-36.0); MEAN CORPUSCULAR VOLUME 94.4 fL (79-99); RED BLOOD CELL COUNT(AUTO) 3.06 MIL/uL (4.50-6.20); RED CELL DISTRIBUTION WIDTH 13.2 % (11.0-15.5); WHITE BLOOD COUNT (AUTO) 13.2 K/uL (4.8-10.8)
[2020-12-10 05:37] LABS: MAGNESIUM 2.4 mg/dL (1.80-2.40); POTASSIUM 5.2 mmol/L (3.5-5.1)
[2020-12-10] MEDS: LEVOTHYROXINE 50 MCG TABLET PO SCH (05:37)
[2020-12-10] MEDS: METRONIDAZOLE 500MG/100ML BAG 100 ML IVPB SCH ×3 (05:37→20:44)
[2020-12-10 05:46] LABS: CREATININE 11.2 mg/dL (0.5-1.5)
[2020-12-10] MEDS: INSULIN R PO SS1 SQ SCH ×4 (05:52→21:21)
[2020-12-10] MEDS: SUCROFERRIC OXYHYDROXIDE 500 MG PO SCH ×3 (08:00→17:00)
[2020-12-10] MEDS: Vitamin B Complex/Vit C/Folic Acid PO SCH (08:55)
[2020-12-10] MEDS: AMLODIPINE 5 MG TAB PO SCH (08:55)
[2020-12-10] MEDS: METOPROLOL TARTRATE 50 MG TAB PO SCH (08:56)
[2020-12-10] MEDS: LOSARTAN 100 MG TABLET PO SCH (08:56)
[2020-12-10] MEDS: INSULIN LISPRO 100 UNIT/ML 3ML SQ SCH ×3 (09:03→18:24)
[2020-12-10] MEDS: 0.9%NACL 1000ML 1,000 ML IV PRN (11:44)
[2020-12-10] MEDS: HEPARIN 5,000 UNIT VIAL IJ PRN (11:50)
[2020-12-10] MEDS: INSULIN GLARGINE 100 UNITS/ML 10 ML VIAL SQ SCH (12:48)
[2020-12-11 04:40] VITALS: BP 127/68
[2020-12-11] MEDS: METRONIDAZOLE 500MG/100ML BAG 100 ML IVPB SCH ×3 (05:06→23:06)
[2020-12-11] MEDS: INSULIN R PO SS1 SQ SCH ×4 (05:07→21:00)
[2020-12-11] MEDS: LEVOTHYROXINE 50 MCG TABLET PO SCH (07:30)
[2020-12-11 08:00] VITALS: BP 136/68
[2020-12-11] MEDS: SUCROFERRIC OXYHYDROXIDE 500 MG PO SCH ×3 (08:00→17:00)
[2020-12-11] MEDS: AMLODIPINE 5 MG TAB PO SCH (09:43)
[2020-12-11] MEDS: LOSARTAN 100 MG TABLET PO SCH (09:43)
[2020-12-11] MEDS: Vitamin B Complex/Vit C/Folic Acid PO SCH (09:43)
[2020-12-11] MEDS: METOPROLOL TARTRATE 50 MG TAB PO SCH (09:43)
[2020-12-11] MEDS: INSULIN LISPRO 100 UNIT/ML 3ML SQ SCH ×3 (09:52→17:56)
[2020-12-11 11:39] VITALS: BP 129/70
[2020-12-11] MEDS: INSULIN GLARGINE 100 UNITS/ML 10 ML VIAL SQ SCH (12:15)
[2020-12-11 16:34] VITALS: BP 117/56
[2020-12-11 20:00] VITALS: BP 112/62
[2020-12-12] VITALS (20 sets, daily range): BP systolic 101–149; BP diastolic 58–78
[2020-12-12] MEDS: LEVOTHYROXINE 50 MCG TABLET PO SCH (05:58)
[2020-12-12] MEDS: METRONIDAZOLE 500MG/100ML BAG 100 ML IVPB SCH ×3 (05:58→21:00)
[2020-12-12] MEDS: INSULIN R PO SS1 SQ SCH ×4 (06:19→21:00)
[2020-12-12] MEDS: SUCROFERRIC OXYHYDROXIDE 500 MG PO SCH ×3 (08:00→16:31)
[2020-12-12] MEDS: LOSARTAN 100 MG TABLET PO SCH (09:07)
[2020-12-12] MEDS: INSULIN LISPRO 100 UNIT/ML 3ML SQ SCH ×3 (09:08→16:52)
[2020-12-12] MEDS: Vitamin B Complex/Vit C/Folic Acid PO SCH (09:08)
[2020-12-12] MEDS: AMLODIPINE 5 MG TAB PO SCH (09:08)
[2020-12-12] MEDS: METOPROLOL TARTRATE 50 MG TAB PO SCH (09:08)
[2020-12-12] MEDS: 0.9%NACL 1000ML 1,000 ML IV PRN (09:11)
[2020-12-12] MEDS: HEPARIN 5,000 UNIT VIAL IJ PRN (09:12)
[2020-12-12] MEDS: INSULIN GLARGINE 100 UNITS/ML 10 ML VIAL SQ SCH (11:50)
[2020-12-12] MEDS: CEFTRIAXONE 2GM VIAL IVP SCH (21:53)
[2020-12-13 00:12] VITALS: BP 150/71
[2020-12-13 03:32] VITALS: BP 146/71
[2020-12-13] MEDS: METRONIDAZOLE 500MG/100ML BAG 100 ML IVPB SCH ×3 (05:33→21:23)
[2020-12-13] MEDS: INSULIN R PO SS1 SQ SCH ×4 (06:05→21:05)
[2020-12-13] MEDS: SUCROFERRIC OXYHYDROXIDE 500 MG PO SCH ×3 (07:24→17:00)
[2020-12-13] MEDS: LEVOTHYROXINE 50 MCG TABLET PO SCH (07:43)
[2020-12-13] MEDS: LOSARTAN 100 MG TABLET PO SCH (07:43)
[2020-12-13] MEDS: Vitamin B Complex/Vit C/Folic Acid PO SCH (07:43)
[2020-12-13] MEDS: AMLODIPINE 5 MG TAB PO SCH (07:43)
[2020-12-13] MEDS: METOPROLOL TARTRATE 50 MG TAB PO SCH (07:43)
[2020-12-13] MEDS: INSULIN LISPRO 100 UNIT/ML 3ML SQ SCH ×3 (07:45→17:13)
[2020-12-13 07:50] VITALS: BP 155/75
[2020-12-13 11:33] VITALS: BP 143/70
[2020-12-13] MEDS: INSULIN GLARGINE 100 UNITS/ML 10 ML VIAL SQ SCH (12:41)
[2020-12-13 16:36] VITALS: BP 132/70
[2020-12-13 20:00] VITALS: BP 109/67
[2020-12-13] MEDS: CEFTRIAXONE 2GM VIAL IVP SCH (21:23)
[2020-12-14] VITALS (22 sets, daily range): BP systolic 111–156; BP diastolic 58–80
[2020-12-14 05:14] LABS: HEMATOCRIT 29.9 % (42-54); MEAN CORPUSCULAR HEMOGLOBIN 31.7 pg (27.0-33.0); MEAN CORPUSCULAR HGB CONC 33.4 g/dL (32.0-36.0); MEAN CORPUSCULAR VOLUME 94.9 fL (79-99); RED BLOOD CELL COUNT(AUTO) 3.15 MIL/uL (4.50-6.20); RED CELL DISTRIBUTION WIDTH 13.1 % (11.0-15.5); WHITE BLOOD COUNT (AUTO) 10.2 K/uL (4.8-10.8)
[2020-12-14] MEDS: METRONIDAZOLE 500MG/100ML BAG 100 ML IVPB SCH ×3 (05:26→22:40)
[2020-12-14 05:27] LABS: MAGNESIUM 2.5 mg/dL (1.80-2.40)
[2020-12-14 05:30] LABS: CREATININE 10.3 mg/dL (0.5-1.5)
[2020-12-14] MEDS: INSULIN R PO SS1 SQ SCH ×4 (06:40→20:50)
[2020-12-14] MEDS: LEVOTHYROXINE 50 MCG TABLET PO SCH (06:52)
[2020-12-14] MEDS: SUCROFERRIC OXYHYDROXIDE 500 MG PO SCH ×3 (08:00→17:00)
[2020-12-14] MEDS: Vitamin B Complex/Vit C/Folic Acid PO SCH (08:40)
[2020-12-14] MEDS: AMLODIPINE 5 MG TAB PO SCH (08:40)
[2020-12-14] MEDS: LOSARTAN 100 MG TABLET PO SCH (08:40)
[2020-12-14] MEDS: METOPROLOL TARTRATE 50 MG TAB PO SCH (08:40)
[2020-12-14] MEDS: INSULIN LISPRO 100 UNIT/ML 3ML SQ SCH ×3 (08:47→17:42)
[2020-12-14] MEDS: INSULIN GLARGINE 100 UNITS/ML 10 ML VIAL SQ SCH (11:49)
[2020-12-14] MEDS: HEPARIN 5,000 UNIT VIAL IJ PRN (19:21)
[2020-12-14] MEDS: 0.9%NACL 1000ML 1,000 ML IV PRN (19:21)
[2020-12-14] MEDS: CEFTRIAXONE 2GM VIAL IVP SCH (22:40)
[2020-12-15 04:40] VITALS: BP 141/66
[2020-12-15] MEDS: METRONIDAZOLE 500MG/100ML BAG 100 ML IVPB SCH ×3 (05:47→22:06)
[2020-12-15] MEDS: INSULIN R PO SS1 SQ SCH ×4 (06:17→21:00)
[2020-12-15] MEDS: LEVOTHYROXINE 50 MCG TABLET PO SCH (06:17)
[2020-12-15 07:51] VITALS: BP 123/64
[2020-12-15] MEDS: SUCROFERRIC OXYHYDROXIDE 500 MG PO SCH ×3 (08:00→16:49)
[2020-12-15] MEDS: Vitamin B Complex/Vit C/Folic Acid PO SCH (08:06)
[2020-12-15] MEDS: METOPROLOL TARTRATE 50 MG TAB PO SCH (08:06)
[2020-12-15] MEDS: AMLODIPINE 5 MG TAB PO SCH (08:06)
[2020-12-15] MEDS: LOSARTAN 100 MG TABLET PO SCH (08:06)
[2020-12-15] MEDS: INSULIN LISPRO 100 UNIT/ML 3ML SQ SCH ×4 (08:08→16:58)
[2020-12-15 11:02] VITALS: BP 121/68
[2020-12-15] MEDS: INSULIN GLARGINE 100 UNITS/ML 10 ML VIAL SQ SCH (11:54)
[2020-12-15 16:18] VITALS: BP 118/58
[2020-12-15 20:08] VITALS: BP 110/63
[2020-12-15] MEDS: CEFTRIAXONE 2GM VIAL IVP SCH (22:06)
[2020-12-15 22:53] VITALS: BP 124/61
[2020-12-16 03:33] VITALS: BP 130/70
[2020-12-16] MEDS: METRONIDAZOLE 500MG/100ML BAG 100 ML IVPB SCH ×3 (05:32→21:17)
[2020-12-16] MEDS: ACETAMINOPHEN 325 MG TAB PO PRN (06:22)
[2020-12-16] MEDS: LEVOTHYROXINE 50 MCG TABLET PO SCH (06:22)
[2020-12-16] MEDS: INSULIN R PO SS1 SQ SCH ×4 (06:23→20:45)
[2020-12-16] MEDS: SUCROFERRIC OXYHYDROXIDE 500 MG PO SCH ×3 (08:00→17:00)
[2020-12-16 08:30] VITALS: BP 105/43
[2020-12-16] MEDS: METOPROLOL TARTRATE 50 MG TAB PO SCH (09:18)
[2020-12-16] MEDS: Vitamin B Complex/Vit C/Folic Acid PO SCH (09:18)
[2020-12-16] MEDS: LOSARTAN 100 MG TABLET PO SCH (09:18)
[2020-12-16] MEDS: AMLODIPINE 5 MG TAB PO SCH (09:18)
[2020-12-16] MEDS: INSULIN LISPRO 100 UNIT/ML 3ML SQ SCH ×3 (09:24→17:09)
[2020-12-16 11:00] VITALS: BP 123/78
[2020-12-16] MEDS: INSULIN GLARGINE 100 UNITS/ML 10 ML VIAL SQ SCH (12:32)
[2020-12-16 16:00] VITALS: BP 115/55
[2020-12-16 20:09] VITALS: BP 129/58
[2020-12-16] MEDS: CEFTRIAXONE 2GM VIAL IVP SCH (21:17)
[2020-12-16 23:50] VITALS: BP 143/66
[2020-12-17] VITALS (22 sets, daily range): BP systolic 95–144; BP diastolic 55–70
[2020-12-17] MEDS: ACETAMINOPHEN 325 MG TAB PO PRN (03:31)
[2020-12-17] MEDS: METRONIDAZOLE 500MG/100ML BAG 100 ML IVPB SCH ×3 (05:45→20:49)
[2020-12-17 06:02] LABS: HEMATOCRIT 28.5 % (42-54); MEAN CORPUSCULAR HEMOGLOBIN 32.5 pg (27.0-33.0); MEAN CORPUSCULAR HGB CONC 33.7 g/dL (32.0-36.0); MEAN CORPUSCULAR VOLUME 96.6 fL (79-99); RED BLOOD CELL COUNT(AUTO) 2.95 MIL/uL (4.50-6.20); RED CELL DISTRIBUTION WIDTH 12.8 % (11.0-15.5); WHITE BLOOD COUNT (AUTO) 10.8 K/uL (4.8-10.8)
[2020-12-17 06:15] LABS: MAGNESIUM 2.3 mg/dL (1.80-2.40); POTASSIUM 5.4 mmol/L (3.5-5.1)
[2020-12-17] MEDS: LEVOTHYROXINE 50 MCG TABLET PO SCH (06:31)
[2020-12-17] MEDS: INSULIN R PO SS1 SQ SCH ×4 (06:31→21:21)
[2020-12-17] MEDS: SUCROFERRIC OXYHYDROXIDE 500 MG PO SCH ×3 (08:00→16:21)
[2020-12-17] MEDS: LOSARTAN 100 MG TABLET PO SCH (09:00)
[2020-12-17] MEDS: AMLODIPINE 5 MG TAB PO SCH (09:00)
[2020-12-17] MEDS: METOPROLOL TARTRATE 50 MG TAB PO SCH (09:00)
[2020-12-17] MEDS: INSULIN LISPRO 100 UNIT/ML 3ML SQ SCH ×3 (09:49→16:24)
[2020-12-17] MEDS: Vitamin B Complex/Vit C/Folic Acid PO SCH (09:49)
[2020-12-17] MEDS: INSULIN GLARGINE 100 UNITS/ML 10 ML VIAL SQ SCH (11:38)
[2020-12-17] MEDS: HEPARIN 5,000 UNIT VIAL IJ PRN (13:54)
[2020-12-17] MEDS: CEFTRIAXONE 2GM VIAL IVP SCH (20:49)
[2020-12-18 03:45] VITALS: BP 145/68
[2020-12-18] MEDS: ACETAMINOPHEN 325 MG TAB PO PRN (04:59)
[2020-12-18] MEDS: METRONIDAZOLE 500MG/100ML BAG 100 ML IVPB SCH ×2 (06:00→13:55)
[2020-12-18] MEDS: INSULIN R PO SS1 SQ SCH ×4 (06:19→21:00)
[2020-12-18] MEDS: LEVOTHYROXINE 50 MCG TABLET PO SCH (06:30)
[2020-12-18 07:12] VITALS: BP 141/70
[2020-12-18] MEDS: SUCROFERRIC OXYHYDROXIDE 500 MG PO SCH ×3 (08:00→16:26)
[2020-12-18] MEDS: METOPROLOL TARTRATE 50 MG TAB PO SCH (08:44)
[2020-12-18] MEDS: LOSARTAN 100 MG TABLET PO SCH (08:44)
[2020-12-18] MEDS: AMLODIPINE 5 MG TAB PO SCH (08:44)
[2020-12-18] MEDS: Vitamin B Complex/Vit C/Folic Acid PO SCH (08:44)
[2020-12-18] MEDS: INSULIN LISPRO 100 UNIT/ML 3ML SQ SCH ×3 (08:51→16:38)
[2020-12-18 11:13] VITALS: BP 116/54
[2020-12-18] MEDS: INSULIN GLARGINE 100 UNITS/ML 10 ML VIAL SQ SCH (11:39)
[2020-12-18 15:43] VITALS: BP 140/67
[2020-12-18 19:00] VITALS: BP 130/61
[2020-12-18] MEDS: CEFTRIAXONE 2GM VIAL IVP SCH (22:04)
[2020-12-19] VITALS (19 sets, daily range): BP systolic 102–152; BP diastolic 60–83
[2020-12-19] MEDS: ACETAMINOPHEN 325 MG TAB PO PRN (03:05)
[2020-12-19] MEDS: INSULIN R PO SS1 SQ SCH ×4 (07:30→22:22)
[2020-12-19] MEDS: INSULIN LISPRO 100 UNIT/ML 3ML SQ SCH ×3 (08:00→16:46)
[2020-12-19] MEDS: SUCROFERRIC OXYHYDROXIDE 500 MG PO SCH ×3 (08:00→16:46)
[2020-12-19] MEDS: LOSARTAN 100 MG TABLET PO SCH (09:00)
[2020-12-19] MEDS: AMLODIPINE 5 MG TAB PO SCH (09:00)
[2020-12-19] MEDS: 0.9%NACL 1000ML 1,000 ML IV PRN (09:36)
[2020-12-19] MEDS: HEPARIN 5,000 UNIT VIAL IJ PRN (09:40)
[2020-12-19] MEDS: Vitamin B Complex/Vit C/Folic Acid PO SCH (13:28)
[2020-12-19] MEDS: METOPROLOL TARTRATE 50 MG TAB PO SCH (13:29)
[2020-12-19] MEDS: LEVOTHYROXINE 50 MCG TABLET PO SCH (13:29)
[2020-12-19] MEDS: INSULIN GLARGINE 100 UNITS/ML 10 ML VIAL SQ SCH (13:30)
[2020-12-19] MEDS: CEFTRIAXONE 2GM VIAL IVP SCH (22:21)
[2020-12-20] VITALS: BP 125/61
[2020-12-20 04:00] VITALS: BP 114/64
[2020-12-20] MEDS: ACETAMINOPHEN 325 MG TAB PO PRN (04:47)
[2020-12-20] MEDS: LEVOTHYROXINE 50 MCG TABLET PO SCH (06:23)
[2020-12-20] MEDS: INSULIN R PO SS1 SQ SCH ×2 (06:25→11:30)
[2020-12-20] MEDS: SUCROFERRIC OXYHYDROXIDE 500 MG PO SCH ×2 (08:00→12:00)
[2020-12-20 08:23] VITALS: BP 124/60
[2020-12-20] MEDS: METOPROLOL TARTRATE 50 MG TAB PO SCH (08:26)
[2020-12-20] MEDS: LOSARTAN 100 MG TABLET PO SCH (08:26)
[2020-12-20] MEDS: AMLODIPINE 5 MG TAB PO SCH (08:26)
[2020-12-20] MEDS: Vitamin B Complex/Vit C/Folic Acid PO SCH (08:26)
[2020-12-20] MEDS: INSULIN LISPRO 100 UNIT/ML 3ML SQ SCH ×2 (08:32→12:01)
[2020-12-20 11:47] VITALS: BP 114/54
[2020-12-20] MEDS: INSULIN GLARGINE 100 UNITS/ML 10 ML VIAL SQ SCH (12:02)
[2020-12-20 16:28] VITALS: BP 147/72
== END 2020-12-20 18:50 | disposition home health service (06) | DRG 987 ==
LOC: EDH 20:55 → EDHIP 23:37 → 3AH 11-21 05:59
PROVIDERS: ADMIT Internal Medicine Infectious Disease; ATTEND Internal Medicine Infectious Disease
PROC: 5A1D70Z Performance of Urinary Filtration, Intermittent, Less than 6 Hours Per Day (ICD-10-PCS; 2020-11-21)
PROC: 0JPV3WZ Removal of Totally Implantable Vascular Access Device from Upper Extremity Subcutaneous Tissue and Fascia, Percutaneous Approach (ICD-10-PCS; 2020-11-23)
PROC: 5A1D70Z Performance of Urinary Filtration, Intermittent, Less than 6 Hours Per Day (ICD-10-PCS; 2020-11-26)
PROC: 0J9P0ZZ Drainage of Left Lower Leg Subcutaneous Tissue and Fascia, Open Approach (ICD-10-PCS; 2020-11-27 13:27)
PROC: 5A1D70Z Performance of Urinary Filtration, Intermittent, Less than 6 Hours Per Day (ICD-10-PCS; 2020-11-28)
PROC: 0QBM0ZZ Excision of Left Tarsal, Open Approach (ICD-10-PCS; principal; 2020-11-29 17:00)
PROC: 5A1D70Z Performance of Urinary Filtration, Intermittent, Less than 6 Hours Per Day (ICD-10-PCS; 2020-11-30)
PROC: 5A1D70Z Performance of Urinary Filtration, Intermittent, Less than 6 Hours Per Day (ICD-10-PCS; 2020-12-05)
PROC: 5A1D70Z Performance of Urinary Filtration, Intermittent, Less than 6 Hours Per Day (ICD-10-PCS; 2020-12-07)
PROC: 5A1D70Z Performance of Urinary Filtration, Intermittent, Less than 6 Hours Per Day (ICD-10-PCS; 2020-12-10)
PROC: 5A1D70Z Performance of Urinary Filtration, Intermittent, Less than 6 Hours Per Day (ICD-10-PCS; 2020-12-12)
PROC: 5A1D70Z Performance of Urinary Filtration, Intermittent, Less than 6 Hours Per Day (ICD-10-PCS; 2020-12-14)
PROC: 5A1D70Z Performance of Urinary Filtration, Intermittent, Less than 6 Hours Per Day (ICD-10-PCS; 2020-12-17)
PROC: 5A1D70Z Performance of Urinary Filtration, Intermittent, Less than 6 Hours Per Day (ICD-10-PCS; 2020-12-19)
DX: T80.211A Bloodstream infection due to central venous catheter, initial encounter (principal); N18.6 End stage renal disease; A41.51 Sepsis due to Escherichia coli [E. coli]; I12.0 Hypertensive chronic kidney disease with stage 5 chronic kidney disease or end stage renal disease; E87.1 Hypo-osmolality and hyponatremia; L02.612 Cutaneous abscess of left foot; N39.0 Urinary tract infection, site not specified; L02.416 Cutaneous abscess of left lower limb; L03.116 Cellulitis of left lower limb; Z68.42 Body mass index [BMI] 45.0-49.9, adult; L97.319 Non-pressure chronic ulcer of right ankle with unspecified severity; L97.329 Non-pressure chronic ulcer of left ankle with unspecified severity; L97.429 Non-pressure chronic ulcer of left heel and midfoot with unspecified severity; M86.60 Other chronic osteomyelitis, unspecified site; E11.22 Type 2 diabetes mellitus with diabetic chronic kidney disease; E11.65 Type 2 diabetes mellitus with hyperglycemia; E11.69 Type 2 diabetes mellitus with other specified complication; E66.01 Morbid (severe) obesity due to excess calories; E87.5 Hyperkalemia; D63.1 Anemia in chronic kidney disease; B95.61 Methicillin susceptible Staphylococcus aureus infection as the cause of diseases classified elsewhere; E03.9 Hypothyroidism, unspecified; E11.610 Type 2 diabetes mellitus with diabetic neuropathic arthropathy; E11.621 Type 2 diabetes mellitus with foot ulcer; E87.70 Fluid overload, unspecified; L97.529 Non-pressure chronic ulcer of other part of left foot with unspecified severity; M21.962 Unspecified acquired deformity of left lower leg; M85.80 Other specified disorders of bone density and structure, unspecified site; S99.921A Unspecified injury of right foot, initial encounter; Y84.8 Other medical procedures as the cause of abnormal reaction of the patient, or of later complication, without mention of misadventure at the time of the procedure; Z20.822 Contact with and (suspected) exposure to COVID-19; Z88.8 Allergy status to other drugs, medicaments and biological substances; Z99.2 Dependence on renal dialysis; Z98.1 Arthrodesis status; Z80.0 Family history of malignant neoplasm of digestive organs; Z83.3 Family history of diabetes mellitus; Z82.49 Family history of ischemic heart disease and other diseases of the circulatory system
CPT/HCPCS: 36415; 36558; 36589; 71045; 73590; 73610; 73630; 77001; 80048; 80053; 81001; 82948; 83605; 83735; 83880; 85025; 85027; 85610; 85730; 86140; 86704; 86706; 86850; 86900; 86901; 87040; 87070; 87076; 87077; 87186; 87205; 87340; 87426; 87635; 87804; 87880; 90935; 99156; 99157; A4606; C1725; C1750; C1769; G0378; J0330; J0696; J1644; J1815; J2001; J2250; J2543; J2704; J2795; J3010; J3370; J3490; J7030; J7040; J7050; Q9967

== ENCOUNTER → 2022-03-04 | Outpatient (CLI) | payer OTHER, MEDICARE ==
[~2022-03-04] VITALS: Ht 190.5 cm; Wt 158.8 kg
[~2022-03-04] MED LIST: AMLO-258 PO; AMOX1TAB16 PO; CALA177S9 TP; CEFAZOLIN SODIUM 1 GM VIAL IVPB SCH; FOLI0.8T43 PO; FOLI1TAB85 PO; INSLAN SQ; INSU100I43 SQ; LEVO50CA4 PO; METO50TA18 PO; SUCR500T PO; VALS160T29 PO
[2022-03-04 12:15] VITALS: BP 140/64
[2022-03-04 12:52] LABS: BASOPHILS % (AUTO) 0.9 % (0.0-5.0); EOSINOPHILS % (AUTO) 4.9 % (0.0-8.0); HEMATOCRIT 36.1 % (42-54); LYMPHOCYTES % (AUTO) 23.9 % (21.0-51.0); MEAN CORPUSCULAR HGB CONC 33.8 g/dL (32.0-36.0); MEAN CORPUSCULAR VOLUME 94.8 fL (79-99); MONOCYTES % (AUTO) 7.4 % (3.0-13.0); NEUTROPHILS % (AUTO) 61.9 % (40.0-77.0); PLATELET COUNT (AUTO) 189 K/uL (130-400); RED BLOOD CELL COUNT(AUTO) 3.81 MIL/uL (4.50-6.20); RED CELL DISTRIBUTION WIDTH 13.1 % (11.0-15.5); WHITE BLOOD COUNT (AUTO) 11.1 K/uL (4.8-10.8)
[2022-03-04 13:03] LABS: INR 0.94 (0.85-1.15); PROTHROMBIN TIME 10.3 SEC (9.6-11.6)
[2022-03-04 13:05] LABS: PARTIAL THROMBOPLASTIN TIME 26.3 SEC (26.3-35.5)
[2022-03-04 13:35] LABS: ALBUMIN 3.6 g/dL (3.5-5.0); POTASSIUM 5.2 mmol/L (3.5-5.1); TOTAL PROTEIN, SERUM 8.9 g/dL (6.0-8.3)
== END | disposition home or self-care (01) ==
LOC: EDSTATUS 09:00 → DAH 10:00
PROVIDERS: ATTEND Student in an Organized Health Care Education/Training Program
DX: Z01.818 Encounter for other preprocedural examination (principal); Z20.822 Contact with and (suspected) exposure to COVID-19; E66.01 Morbid (severe) obesity due to excess calories; E11.22 Type 2 diabetes mellitus with diabetic chronic kidney disease; I12.0 Hypertensive chronic kidney disease with stage 5 chronic kidney disease or end stage renal disease; N18.6 End stage renal disease; E03.9 Hypothyroidism, unspecified; E78.5 Hyperlipidemia, unspecified; D64.9 Anemia, unspecified; Z79.01 Long term (current) use of anticoagulants; Z99.2 Dependence on renal dialysis; Z79.890 Hormone replacement therapy; Z79.4 Long term (current) use of insulin; Z98.890 Other specified postprocedural states; Z82.49 Family history of ischemic heart disease and other diseases of the circulatory system; Z83.3 Family history of diabetes mellitus; Z68.41 Body mass index [BMI] 40.0-44.9, adult
CPT/HCPCS: 36415; 80053; 85025; 85610; 85730; 87426

== ENCOUNTER 2022-07-17 08:17 | Day surgery (SDC) | payer MEDICARE, OTHER ==
[2022-07-15 12:00] LABS: BASOPHILS % (AUTO) 0.7 % (0.0-5.0); EOSINOPHILS % (AUTO) 3.7 % (0.0-8.0); HEMATOCRIT 34.7 % (42-54); LYMPHOCYTES % (AUTO) 18.3 % (21.0-51.0); MEAN CORPUSCULAR HEMOGLOBIN 31.7 pg (27.0-33.0); MEAN CORPUSCULAR HGB CONC 33.7 g/dL (32.0-36.0); NEUTROPHILS % (AUTO) 67.9 % (40.0-77.0); PLATELET COUNT (AUTO) 255 K/uL (130-400); RED BLOOD CELL COUNT(AUTO) 3.69 MIL/uL (4.50-6.20); RED CELL DISTRIBUTION WIDTH 13.2 % (11.0-15.5); WHITE BLOOD COUNT (AUTO) 13.5 K/uL (4.8-10.8)
[2022-07-15 12:17] LABS: INR 0.93 (0.85-1.15); PROTHROMBIN TIME 10.1 SEC (9.6-11.6)
[2022-07-15 12:24] LABS: ALBUMIN 3.4 g/dL (3.5-5.0); POTASSIUM 4.6 mmol/L (3.5-5.1); TOTAL PROTEIN, SERUM 8.3 g/dL (6.0-8.3)
[2022-07-15 12:27] VITALS: BP 141/62
[2022-07-15 12:32] LABS: CREATININE 8.7 mg/dL (0.5-1.5)
[2022-07-17] VITALS (16 sets, daily range): BP systolic 126–148; BP diastolic 55–86
[~2022-07-17] VITALS: Ht 188 cm; Wt 154.6 kg
[~2022-07-17 08:17] MED LIST changes: -AMOX1TAB16 PO; -CALA177S9 TP; -CEFAZOLIN SODIUM 1 GM VIAL IVPB SCH; +FOLI0.8T22 PO; -FOLI0.8T43 PO; -FOLI1TAB85 PO; -INSU100I43 SQ; +INSU100V3 IJ; +furosemide PO
[2022-07-17 09:19] LABS: CREATININE 7.7 mg/dL (0.5-1.5); POTASSIUM 4.5 mmol/L (3.5-5.1)
[2022-07-17] MEDS ORDERED: FURO20TA4 PO (09:33)
[2022-07-17] MEDS ORDERED: 0.9% NACL 500ML IV.SOLN 500 ML IV ONE (09:34)
[2022-07-17] MEDS: CEFAZOLIN SODIUM 1 GM VIAL ONE ×2 (09:41→10:45)
[2022-07-17] MEDS ORDERED: MIDAZOLAM HCL 1 MG/ML 2ML VIAL ONE (09:56)
[2022-07-17] MEDS ORDERED: PROPOFOL 10 MG/ML 20ML VIAL IV ONE (09:56)
[2022-07-17] MEDS ORDERED: ROCURONIUM 10MG/1ML SYR 10 MG/ML ML ONE (09:57)
[2022-07-17] MEDS ORDERED: FENTANYL CITRATE PF 50 MCG/1 ML 2ML VIAL ONE ×2 (09:59→11:10)
[2022-07-17] MEDS ORDERED: ROPIVACAINE 0.5% 5MG/ML 30ML IJ ONE (10:02)
[2022-07-17] MEDS ORDERED: EPHEDRINE SULFATE 50 MG/ML AMPULE ONE (10:27)
[2022-07-17] MEDS ORDERED: NEOSTIGMINE 5MG/5ML SYR IV ONE (11:12)
[2022-07-17] MEDS ORDERED: GLYCOPYRROLATE 1 MG/5 ML SYRINGE ONE (11:12)
== END 2022-07-17 13:20 | disposition home or self-care (01) ==
LOC: DAH 08:17
PROVIDERS: ATTEND Student in an Organized Health Care Education/Training Program
DX: E11.22 Type 2 diabetes mellitus with diabetic chronic kidney disease (principal); Z20.822 Contact with and (suspected) exposure to COVID-19; I12.0 Hypertensive chronic kidney disease with stage 5 chronic kidney disease or end stage renal disease; N18.6 End stage renal disease; E66.01 Morbid (severe) obesity due to excess calories; E03.9 Hypothyroidism, unspecified; Z90.89 Acquired absence of other organs; Z88.8 Allergy status to other drugs, medicaments and biological substances; Z98.890 Other specified postprocedural states; Z82.49 Family history of ischemic heart disease and other diseases of the circulatory system; Z83.3 Family history of diabetes mellitus; Z79.01 Long term (current) use of anticoagulants; Z79.4 Long term (current) use of insulin; Z99.2 Dependence on renal dialysis; Z68.41 Body mass index [BMI] 40.0-44.9, adult
CPT/HCPCS: 80053; 85025; 85610; 85730; 87426; 36415 ×2; 71045; 93005; 64417; 36821; 80048; 82948 ×2; A6260; A4663; J7040; J3010 ×2; J0690; J3490 ×2; J2710; J2250; J2704; J1644; J2795; G0168; A4649 ×3; C1713 ×2; A4215; A4223; A4222; A4221

== ENCOUNTER → 2022-11-17 | Outpatient (CLI) | payer MEDICARE, OTHER ==
[~2022-11-17] VITALS: Ht 188 cm; Wt 156.5 kg
[~2022-11-17] MED LIST changes: +AMOX-426 PO; +FURO20TA4 PO; -furosemide PO
[2022-11-17 09:12] LABS: BASOPHILS # (AUTO) 0.11 K/uL (0.00-0.20); BASOPHILS % (AUTO) 0.8 % (0.0-5.0); EOSINOPHILS # (AUTO) 0.54 K/uL (0.00-0.70); EOSINOPHILS % (AUTO) 4.2 % (0.0-8.0); HEMATOCRIT 32.9 % (42-54); LYMPHOCYTES # (AUTO) 2.8 K/uL (1.0-4.8); LYMPHOCYTES % (AUTO) 21.6 % (21.0-51.0); MEAN CORPUSCULAR HEMOGLOBIN 32.3 pg (27.0-33.0); MEAN CORPUSCULAR VOLUME 92.4 fL (79-99); MONOCYTES # (AUTO) 0.8 K/uL (0.1-1.0); MONOCYTES % (AUTO) 5.8 % (3.0-13.0); NEUTROPHILS # (AUTO) 8.7 K/uL (1.8-7.7); NEUTROPHILS % (AUTO) 66.8 % (40.0-77.0); PLATELET COUNT (AUTO) 217 K/uL (130-400); RED BLOOD CELL COUNT(AUTO) 3.56 MIL/uL (4.50-6.20); RED CELL DISTRIBUTION WIDTH 12.4 % (11.0-15.5)
[2022-11-17 09:13] VITALS: BP 162/73; PULSE 73; RESP 18
[2022-11-17 09:25] LABS: ALBUMIN 3.5 g/dL (3.5-5.0); BILIRUBIN,TOTAL 0.4 mg/dL (0.2-1.0); POTASSIUM 5.2 mmol/L (3.5-5.1)
[2022-11-17 09:27] LABS: INR 0.93 (0.85-1.15); PROTHROMBIN TIME 10.5 SEC (9.6-11.6)
[2022-11-17 09:29] LABS: PARTIAL THROMBOPLASTIN TIME 26.7 SEC (26.3-35.5)
[2022-11-17 09:59] LABS: CREATININE 10.7 mg/dL (0.5-1.5)
== END | disposition home or self-care (01) ==
LOC: DAH 10:00 → EDSTATUS 11-20 12:45
PROVIDERS: ATTEND Student in an Organized Health Care Education/Training Program
DX: Z01.818 Encounter for other preprocedural examination (principal); Z20.822 Contact with and (suspected) exposure to COVID-19; N18.6 End stage renal disease
CPT/HCPCS: 86900; 87426; 80053; 85025; 85610; 85730; 86850; 86901; 36415; A6260